=== PATIENT | female | born 1955 | race Caucasian/White ===

== ENCOUNTER → 2017-08-03 | Emergency (ER) | payer BC ==
[~2017-08-03] VITALS: Ht 160 cm; Wt 81.2 kg
[2017-08-03 17:55] VITALS: BP 110/72
--- NOTE | 2017-08-03 21:21 | Emergency Room Report ---
History of Present Illness General Chief Complaint: Abdominal Pain Source: Family Member Present Illness Allergies: Coded Allergies: TETRACYCLINE (Verified Allergy, Unknown, 08/03/17) Patient History Last Menstrual Period: na Nursing Documentation-[facility] Past Medical History: No Stated History Physical Exam Vital Signs Date Time Temp Pulse Resp B/P (MAP) Pulse Ox O2 Delivery O2 Flow Rate FiO2 08/03/17 16:51 97.7 94 18 110/72 97 Room Air Medical Decision Making ER Course Of note, patient did NOT AMA I did not see patient Patient told RN her abdominal pain and resolved and she wanted to leave Last Vital Signs Date Time Temp Pulse Resp B/P (MAP) Pulse Ox O2 Delivery O2 Flow Rate FiO2 08/03/17 17:55 97.7 18 110/72 97 Room Air 08/03/17 16:51 94 Disposition: ELOPED Referrals: NOT CHOSEN HOLLIE/,REFERRING (PCP) HERBERT DE LA CRUZ M.D. Aug 03, 2017 21:21
== END | disposition left against medical advice (07) ==
LOC: EMR 18:00
DX: R10.9 Unspecified abdominal pain (principal); Z53.21 Procedure and treatment not carried out due to patient leaving prior to being seen by health care provider
CPT/HCPCS: 99281